=== PATIENT | male | born 1935 | race Caucasian/White ===

== ENCOUNTER 2016-03-10 15:30 | Observation (INO) | payer MEDICARE, OTHER ==
[~2016-03-10] VITALS: Ht 167.6 cm; Wt 78.6 kg
[~2016-03-10 15:30] MED LIST: ALBU8.5H2 INHALATION; ASPI-973 PO; LOSA50TA3 PO; METF500T4 PO; MULT-1018 PO
[2016-03-10 15:47] VITALS: BP 172/66; PULSE 66; RESP 20; O2SAT 99
--- NOTE | 2016-03-10 16:22 | DRSVH ---
PROCEDURE: X-RAY CHEST ONE VIEW, PORTABLE ([id number]) INDICATIONS: 80 year-old male with chest pain. TECHNIQUE: One view of the chest was acquired. COMPARISON: [facility], CR, XR CHEST 2VW, 01/23/2016, 17:32. [facility], CR, XR CHEST 2VW, 10/24/2015, 18:30. [facility], CR, XR CHEST 2VW, 09/27/2015, 14:54. FINDINGS: Surgical changes and devices: None. Lungs and pleura: No pleural effusions or pneumothorax. Lungs are clear. Mediastinum: Mediastinal contours appear normal. Heart size is normal. There is aortic atheroscler osis. Bones and chest wall: No suspicious bony lesions. Overlying soft tissues appear unremarkable. IMPRESSION: No acute cardiopulmonary disease. Dictated by: Pablo Merritt M.D. on 03/10/2016 at 16:20 Approved by: Pablo Merritt M.D. on 03/10/2016 at 16:20
[2016-03-10 16:30] VITALS: BP 155/49; PULSE 65; RESP 17; O2SAT 100
--- NOTE | 2016-03-10 16:50 | ED.REPORT ---
HPI-General Illness Date of Service Mar 10, 2016 ED Provider: Cecilio Gutierrez DO Pt is a 80 year old male with a history of DM, HTN and bladder cancer who was sent to the ED from with concerns for dizziness that started 3 days ago. He denies a spinning sensation, reports that he just feels off balance. Pt reports that these symptoms occur about every 30 minutes and last about one minute. This dizziness is brought on by movement, but can occur on even without movement. He reports that he has a tingling sensation that starts in his head and radiates down his arm. Pt reports no tinnitus, chest pain, abdominal pain, shortness of breath or history of vertigo. Pt's daughter reports that he has recently had an increase in his HTN medication, and when he told his PCP about his dizziness, she told him to stop taking the medication. He has not taken this for the past 4 days. Nursing Notes Stated Complaint: DIZZINESS, HIGH BLOOD PRESSURE/SENT FROM [facility] Chief Complaint: Dysrhythmia/Cardiac Nursing Notes Reviewed: Yes Allergies: Coded Allergies: nitrofurantoin (Verified Allergy, Unknown, PNEUMO, 09/08/15) PNEUMONITIS Scheduled Albuterol HFA (Proair HFA) 8.5 Gm Hfa.aer.ad 2 PUFFS INHALATION Q4H Aspirin (Aspirin) 81 Mg Tablet 81 MG PO DAILY Losartan Potassium (Cozaar) 50 Mg Tablet 50 MG PO DAILY Metformin (Metformin) 500 Mg Tablet 500 MG PO DAILY Multivitamin (Multi Vitamin Daily) 1 Each Tablet 1 EACH PO DAILY General Time Seen by MD: 16:32 Chief Complaint Dizziness Hx Obtained From: Patient Arrived By: Walk-in Sudden in Onset?: Yes Symptom Duration: Since onset Severity: Current: No pain currently Severity: Maximum: No pain Similar Sx Previous: Yes Past Medical History Past Medical History Pneumonia Reports: Cancer (Bladder), Diabetes mellitus, Hypertension Past Surgical History Bladder cancer removed by Dr. Akers AAA repair Smoking History Former Smoker Social History Alcohol Use: Denies alcohol use Drug Use: Denies drug use Other Social History: Ambulatory Status Independent Review of Systems Full Review of Systems Constitutional: Reports: Weakness - generalized, Denies: Chills, Fever, Malaise Respiratory: Denies: Non-productive cough, Shortness of breath, Wheezing Cardiovascular: Denies: Chest pain, Syncope GI: Denies: Abdominal pain, Constipation, Diarrhea, Nausea, Vomiting Male: Denies Dysuria, Denies Flank pain Musculoskeletal: Denies: Back pain, Extremity pain, Neck pain Skin: Denies Diaphoresis Neurologic: Reports: Dizziness, Lightheaded, Denies: Change LOC, Headache, Seizure, Syncope, Weakness Complete sys rev & neg: except as marked. Physical Exam Vital Signs Vital Signs Date Time Temp Pulse Resp B/P Pulse Ox O2 Delivery O2 Flow Rate FiO2 03/10/16 16:30 65 17 155/49 100 Room Air 03/10/16 15:47 36.7 66 20 172/66 99 Room Air Initial VS: Reviewed Head / Eyes: Atraumatic, Normocephalic, PERRL ENT: Mucous membranes moist, Conjunctiva normal, No scleral icterus Neck: Supple, Non-tender, Full range of motion Respiratory: Breath sounds normal, Clear to auscultation, No respiratory distress Cardiovascular: Regular rate & rhythm, Heart sounds normal, Intact distal pulses Abdomen / GI: Soft, Non-tender, No guarding, No rebound, No distention Skin: Warm, Dry, No cyanosis Psychiatric: Mood/affect normal, Behavior normal, Normal thought content General/Constitutional: Awake, Alert, No acute distress, Well appearing, Well developed, Well nourished, Cooperative Neurologic: Oriented X3, Speech NL, No motor deficits, No sensory deficits, CN II - XII intact Interpretation & Diagnostics Lab Results Interpretation Result Diagram: 03/10/16 1646 03/10/16 1646 Test 03/10/16 16:46 White Blood Count 10.6th/mm3 (3.8-10.1) Red Blood Count 3.41mil/mm3 (4.40-5.80) Hemoglobin 10.7g/dL (13.8-17.2) Hematocrit 33.0% (41.0-50.0) Mean Corpuscular Volume 96.8fL (81-100) Mean Corpuscular Hemoglobin 31.4pg (27.0-35.0) Mean Corpuscular Hemoglobin Concent 32.4% (32.0-37.0) Red Cell Distribution Width 12.8% (12.3-15.4) Platelet Count 236bil/L (150-400) Neutrophils (%) (Auto) 90.1% (40-74) Lymphocytes (%) (Auto) 7.0% (14-46) Monocytes (%) (Auto) 2.1% (4-12) Eosinophils (%) (Auto) 0.4% (0-5) Basophils (%) (Auto) 0.2% (0-3) Sodium Level 137mEq/L (134-144) Potassium Level 4.5mEq/L (3.5-5.2) Chloride Level 99mEq/L (97-108) Carbon Dioxide Level 26mmol/L (18-29) Blood Urea Nitrogen 29mg/dL (8-27) Creatinine 0.94mg/dL (0.76-1.27) Estimat Glomerular Filtration Rate 82mL/min (>59) Glucose Level 285mg/dL (60-99) Calcium Level 9.7mg/dL (8.5-10.1) Magnesium Level 1.9mg/dL (1.6-2.6) Total Bilirubin 0.5mg/dL (0.0-1.2) Aspartate Amino Transf (AST/SGOT) 15U/L (0-50) Alanine Aminotransferase (ALT/SGPT) 18U/L (0-44) Alkaline Phosphatase 47U/L (25-160) Troponin T < 0.010ug/L (0.0-0.011) Total Protein 7.3g/dL (6.4-8.4) Albumin 3.7g/dL (3.4-5.0) Hold Zafar Top Tube Received (Received) ECG Interpretation ECG Interpretation: SR - [address] block Minor anterior ST elevation without reciprocal changes Time: 16:06 Interpreted by: ED physician X-Ray Chest Interpretation Chest Xray Interpretation: IMPRESSION: No acute cardiopulmonary disease. Dictated by: Pablo Merritt M.D. on 03/10/2016 at 16:20 Interpretation / Wet Read by: Interpret - Radiologist Re-Eval/Medical Decision Med Decision/Clinical Course Overall the patient has intermittent numbness and sense of off balance which follows a neurologic distribution concerning for the possibility of stroke. Certainly the differential is broad. His workup in the ER is unremarkable and neurology is consulted who does recommend admit and further stroke evaluation. Source of Hx: Old records Time of Eval: 18:24 Re-Evaluation/Progress Note: Pt is rechecked and informed of the consult with Neurology and the plan to admit him at this time. He understands and agrees, all questions are addressed. Consultation #1: Referral / Consult Name: Tammi Zarco MD Consulted With: Neurology Call Returned at: 18:04 [employer] Assessment: Agrees with eval, Agrees with plan Note: Suggests admission, CTA and MRI. Agrees to consult Consultation #2: Referral / Consult Name: Sonido Moy MD Consulted With: Hospitalist Call Returned at: 18:35 [employer] Assessment: Accepts admit Counseled Regarding: Diagnosis, Lab results, Need for follow-up, Need for admission Discharge & Departure Primary Impression: TIA (transient ischemic attack) Transient cerebral ischemia type: unspecified Qualified Code: G45.9 - Transient cerebral ischemic attack, unspecified Disposition: ADMITTED TO HOSPITAL Discharge Condition All VS Reviewed: Yes Condition: Stable Referrals: [facility] (PCP) Leonardo Chavez MD (Family) Care Transferred to: Dr. Bonilla Care Transferred at: 18:07 [place] Attestation Portions of this note were transcribed by Odessa Arce. I, Dr. Gutierrez personally performed the history, physical exam and medical decision-making; I reviewed and confirmed the accuracy of the information in the transcribed note. Signed by: Dallas Stark, 03/10/2016 [id number] copies to: [facility]; Leonardo Chavez MD, Timothy S DO Mar 10, 2016 16:50 TATY ARCE Mar 10, 2016 16:58
[2016-03-10 16:55] LABS: BASOPHILS % (AUTO) 0.2 % (0-3); EOSINOPHILS % (AUTO) 0.4 % (0-5); MONOCYTES % (AUTO) 2.1 % (4-12); Mean Corpuscular Hemoglobin 31.4 pg (27.0-35.0); Mean Corpuscular Volume 96.8 fL (81-100); NEUTROPHILS % (AUTO) 90.1 % (40-74); Platelet Count 236 bil/L (150-400)
[2016-03-10 17:27] LABS: Magnesium 1.9 mg/dL (1.6-2.6)
[2016-03-10 17:33] LABS: TROPONIN T < 0.010 ug/L (0.0-0.011)
--- NOTE | 2016-03-10 17:39 | DRSVH ---
PROCEDURE: CT BRAIN WITHOUT CONTRAST ([id number]) INDICATIONS: 80 year-old male with dizziness. TECHNIQUE: Noncontrast 4.5 mm thick angled axial sections acquired from the foramen magnum to the vertex, with c oronal reformats. COMPARISON: None. FINDINGS: Image quality: Excellent. CSF spaces: Basal cisterns are patent. No extra-axial fluid collections. The ventricles are symmet cristal in size and shape. Brain: No intracranial bleeds or masses. There are minimal periventricular and deep white matter ch ronic small vessel ischemic changes. There is intracranial internal carotid artery atherosclerosis. Skull and face: Calvarium and visualized facial bones appear intact, without suspicious lesions. Sinuses: Visualized sinuses and mastoids are clear. IMPRESSION: No acute intracranial abnormalities. Dictated by: Pablo Merritt M.D. on 03/10/2016 at 17:37 Approved by: Pablo Merritt M.D. on 03/10/2016 at 17:37
[2016-03-10 18:36] VITALS: BP 183/54; PULSE 65; RESP 18; O2SAT 100
[2016-03-10] MEDS ORDERED: Ondansetron 2 mg/mL 2 mL Inj IVPUSH PRN (18:40)
[2016-03-10] MEDS ORDERED: Alum-Mag Hydrox-Simeth 30 mL Suspension PO PRN (18:40)
[2016-03-10 19:29] VITALS: BP 153/62; PULSE 67; RESP 18; O2SAT 98
[2016-03-10 19:41] VITALS: BP 175/68; PULSE 76; RESP 20; O2SAT 97
[2016-03-10] MEDS ORDERED: Polyethylene Glycol (PEG) 17 Gm Powder PO PRN (20:40)
[2016-03-10] MEDS ORDERED: iron (20:48)
[2016-03-10] MEDS ORDERED: PRE10 PO (20:48)
[2016-03-10] MEDS ORDERED: Albuterol HFA 60 Puff 8 Gm Inhaler INHALATION PRN (21:00)
--- NOTE | 2016-03-10 21:03 | NUR ---
admit Pt arrived walked from stretcher to bed with stand by assist. Arrived with all belongings, daughter and granddaughter along. Daughter took wallet and car keys home. Pt alert and oriented, helped with med rec. No complaints of pain or discomfort. Some noted dizziness, will monitor.
[2016-03-10] MEDS ORDERED: hydrALAZINE 20 mg/mL Inj IV PRN (21:10)
--- NOTE | 2016-03-10 21:13 | PCM.HPMED ---
Subjective Date of Service Mar 10, 2016 Primary Provider: Admitting Physician: Sonido Moy MD Primary Care Physician: Clinic,[facility] Residency Attending Physician: Sonido Moy MD Chief Complaint: This is a 80-year-old male with an acute neurologic episode. History of Present Illness: He describes episodes of his right face feeling numb, along with his right arm. This seems to last for just a few minutes and occurs every hour or 2. This is been going on now for 4 days, it started quite mildly, intensifying today. He had a bladder cystoscopy done due to bladder cancer a few days ago and his blood pressure was apparently quite high afterwards and so his losartan dose was increased from 25-50 mg, and he was started on Flomax. When this episode started he spoke with the on-call physician who had him stop the Flomax in case that was the cause and the symptoms did not change. He has a very strong family history of stroke but his first CT brain imaging is negative. There is no consistent neurologic deficit on exam. His symptoms also include an imbalance, without vertigo, and present even when sitting in bed. The emergency department physician was able to discuss his case with Dr. Zarco, who suggested brain MRI and observation tonight. He has never had a stroke or a heart attack before but he has had an abdominal aortic aneurysm graft placement and is actually pending another angiogram with Dr. Short in [place] soon because of a "small leak" from one of the areas of the graft into the original aneurysm. He has had no symptoms that could be attributed to that today. Review of Systems: There has been no chest pain, nausea, vomiting, abdominal pain, shortness breath , coughing, fever, chills, sweats, seizures, rash, joint pain, depression, new allergies, dysuria, bleeding. Allergies Coded Allergies: nitrofurantoin (Verified Allergy, Unknown, PNEUMO, 09/08/15) PNEUMONITIS Home Medications Metformin Albuterol Losartan Aspirin Multivitamin PMH Abdominal aortic aneurysm endostent repair Diabetes type II COPD Hypertension Surgical History Endograft of abdominal aorta Family History Positive for abdominal aortic aneurysm and cerebrovascular accident Social History Hx Alcohol Use: No Hx Substance Use: No Smoking Status: Former Smoker Living Arrangement: with Family Exam Vital Signs Vital Sign - Last Date Time Temp Pulse Resp B/P Pulse Ox O2 Delivery O2 Flow Rate FiO2 03/10/16 19:41 36.8 76 20 175/68 97 Room Air Exam Alert and oriented 3 without apparent distress, he recognizes me and discuss his previous interactions with other family members. Pupils are equally round and reactive to light and accommodation. Extraocular muscles are intact. Sclera are pink and nonicteric. Throat looks normal. No lymph nodes are felt at the, neck, supraclavicular area. There is no thyromegaly. JVD is less than 6 cm. No carotid bruits are heard. Heart is regular rate and rhythm without murmur. Lungs are clear to auscultation bilaterally. Abdomen is soft, with lower abdominal fullness, without pulsatile mass, nontender, no hepato-megaly. Extremities have no ankle edema. Neurologic exam shows cranial nerves II through XII tested and intact, DTRs are symmetric and normoactive. Babinskis are downgoing bilaterally. Finger to nose pointing is symmetric. Grey Roll Man strength is slightly diminished on the right side but not in a reliably consistent fashion. Gait and balance are not tested. Skin has no rash or jaundice. He does have multiple seborrheic keratoses on his back. Lab and Diagnostics Labs CBC Test 03/10/16 16:46 White Blood Count 10.6th/mm3 (3.8-10.1) Red Blood Count 3.41mil/mm3 (4.40-5.80) Hemoglobin 10.7g/dL (13.8-17.2) Hematocrit 33.0% (41.0-50.0) Mean Corpuscular Volume 96.8fL (81-100) Mean Corpuscular Hemoglobin 31.4pg (27.0-35.0) Mean Corpuscular Hemoglobin Concent 32.4% (32.0-37.0) Red Cell Distribution Width 12.8% (12.3-15.4) Platelet Count 236bil/L (150-400) Neutrophils (%) (Auto) 90.1% (40-74) Lymphocytes (%) (Auto) 7.0% (14-46) Monocytes (%) (Auto) 2.1% (4-12) Eosinophils (%) (Auto) 0.4% (0-5) Basophils (%) (Auto) 0.2% (0-3) CMP Test 03/10/16 16:46 Sodium Level 137mEq/L Potassium Level 4.5mEq/L Chloride Level 99mEq/L Carbon Dioxide Level 26mmol/L Blood Urea Nitrogen 29mg/dL Creatinine 0.94mg/dL Estimat Glomerular Filtration Rate 82mL/min Glucose Level 285mg/dL Calcium Level 9.7mg/dL Magnesium Level 1.9mg/dL Total Bilirubin 0.5mg/dL Aspartate Amino Transf (AST/SGOT) 15U/L Alanine Aminotransferase (ALT/SGPT) 18U/L Alkaline Phosphatase 47U/L Troponin T < 0.010ug/L Total Protein 7.3g/dL Albumin 3.7g/dL Hold Zafar Top Tube Received Result Diagram: 03/10/16 1646 03/10/16 1646 X-Rays, CTs and MRIs CT BRAIN WITHOUT CONTRAST ([id number]) INDICATIONS: 80 year-old male with dizziness. TECHNIQUE: Noncontrast 4.5 mm thick angled axial sections acquired from the foramen magnum to the vertex, with coronal reformats. COMPARISON: None. FINDINGS: Image quality: Excellent. CSF spaces: Basal cisterns are patent. No extra-axial fluid collections. The ventricles are symmetric in size and shape. Brain: No intracranial bleeds or masses. There are minimal periventricular and deep white matter chronic small vessel ischemic changes. There is intracranial internal carotid artery atherosclerosis. Skull and face: Calvarium and visualized facial bones appear intact, without suspicious lesions. Sinuses: Visualized sinuses and mastoids are clear. IMPRESSION: No acute intracranial abnormalities. Additional Diagnostics: Surgical changes and devices: None. Lungs and pleura: No pleural effusions or pneumothorax. Lungs are clear. Mediastinum: Mediastinal contours appear normal. Heart size is normal. There is aortic atherosclerosis. Bones and chest wall: No suspicious bony lesions. Overlying soft tissues appear unremarkable. IMPRESSION: No acute cardiopulmonary disease. Assessment & Plan 1 - transient ischemic attack Monitor overnight on telemetry Brain MRI in the morning per neurology Neurology consult under consideration, discussed today with Dr. Pryor. Consider Echo. 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 Short in [place] soon. 4 - COPD Continue albuterol as needed. Continue Prednisone. 5 - bladder cancer Followed by Dr. Akers 6 - DM II Continue Metformin and add Lispro Correctional Scale. Zack Moy M.D. Resuscitation Status: CPR: Attempt Resuscitation Sonido Moy MD Mar 10, 2016 20:42
[2016-03-10] MEDS ORDERED: Glucose 40% Oral Gel 15 Gm Tube PO PRN (21:25)
[2016-03-10] MEDS: Insulin LISPRO 300 Unit/3 mL Inj SUBQ SCH (23:31)
[2016-03-11] VITALS (9 sets, daily range): BP systolic 134–191; BP diastolic 63–70; PULSE 55–69; RESP 18–20; O2SAT 96–99
[2016-03-11 06:10] LABS: BASOPHILS % (AUTO) 0.4 % (0-3); EOSINOPHILS % (AUTO) 2.5 % (0-5); MONOCYTES % (AUTO) 7.5 % (4-12); Mean Corpuscular Hemoglobin 32.1 pg (27.0-35.0); Mean Corpuscular Volume 95.3 fL (81-100); NEUTROPHILS % (AUTO) 65.9 % (40-74); Platelet Count 219 bil/L (150-400)
[2016-03-11] MEDS: Insulin LISPRO 300 Unit/3 mL Inj SUBQ SCH ×4 (07:36→21:17)
[2016-03-11] MEDS ORDERED: predniSONE 10 mg Tablet PO SCH (08:00)
--- NOTE | 2016-03-11 09:13 | NUR ---
Off floor to MRI Patient off floor to MRI at 0910, chart with patient, quality assurance monitor body aware. Vitals stable, denies TIA-like symptoms and in no apparent distress.
--- NOTE | 2016-03-11 10:59 | NUR ---
Evaluation completed. Please go to "Notes" then click on "Assessments and Notes" (bottom left corner of screen). Then select appropriate discipline tab on top of screen.
--- NOTE | 2016-03-11 11:21 | NUR ---
Evaluation completed. Please go to "Notes" then click on "Assessments and Notes" (bottom left corner of screen). Then select appropriate discipline tab on top of screen.
--- NOTE | 2016-03-11 11:27 | DRSVH ---
PROCEDURE: MRI STROKE PROTOCOL ([id number]) Pre- and post-contrast brain MRI, non-contrast brain MR angiogram, pre- and postcontrast neck MR elías ogram INDICATIONS: TIA TECHNIQUE: Brain: Noncontrast axial T1 spin echo, axial T2 fast spin echo, sagittal and axial FLAIR, coronal T2 fast spin echo, axial gradient echo, axial diffusion and ADC through the brain. After the administr ation of contrast, axial 3D VIBE of the cranial vasculature and brain. Brain MRA: Non-contrast 3-D time of flight MR angiogram, with multiple xrorhpa-jkkztfeem-sjwmmunoun (MIP) reformats performed. Neck MRA: Axial and sagittal TruFISP through the neck. Coronal dynamic MR angiogram during administ ration of contrast in the arterial and venous phases, with 3-dimenstional cjqjopi-ximsfnyfu-raweguopd n (MIP) reformats constructed from subtraction images. COMPARISON: [facility], CT, CT BRAIN WO CON, 03/10/2016, 17:12. FINDINGS: Image quality: Excellent. The ventricular system and cortical sulci demonstrate moderate atrophy, consistent for the patient's stated age. There are mild to moderate areas of increased T2/FLAIR signal intensity within the perive ntricular and subcortical white matter. There is no acute intra-or extra axial fluid collection. No acute hemorrhage, mass lesion or midline shift. Brainstem is unremarkable. There are no areas of rest ricted diffusion. Globes are symmetrical. Sinuses demonstrate mucosal thickening within the ethmoid a nd frontal sinuses. Osseous structures are intact. The posterior circulation demonstrates a vertebral artery codominance. The posterior cerebral arterie s demonstrate no areas of hemodynamically significant stenosis, vascular occlusion or aneurysmal dila tion. Posterior communicating arteries are within normal limits. The anterior circulation, including the anterior and middle cerebral arteries, as well as internal ca rotid arteries demonstrates no areas of hemodynamically significant stenosis, vascular occlusion or a neurysmal dilation. 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 The origins of the left and right common, internal and external carotid arteries demonstrate no areas of hemodynamically significant stenosis, vascular occlusion or aneurysmal dilation. Origins of the l eft and right vertebral arteries demonstrate no areas of hemodynamically significant stenosis, vascul ar occlusion or aneurysmal dilation. Aortic arch demonstrates bovine anatomy, consistent with congeni porsche variation. Limited, visualized portions subclavian vasculature are unremarkable. IMPRESSION: 1. No acute intracranial process. No visualized acute ischemia. 2. Mild to moderate atrophy and chronic microvascular ischemic changes. 3. No areas of hemodynamically significant stenosis, vascular occlusion or aneurysmal dilation within the anterior circulation. 4. No areas of hemodynamically significant stenosis, vascular occlusion or aneurysmal dilation within the posterior circulation. 5. No areas of hemodynamically significant stenosis, vascular occlusion or aneurysmal dilation within the neck vasculature. The estimate of stenosis included in the report of the imaging study was calculated using the NASCET method Dictated by: Samantha Morley M.D. on 03/11/2016 at 11:25 Approved by: Samantha Morley M.D. on 03/11/2016 at 11:25
--- NOTE | 2016-03-11 11:45 | NUR ---
Social Work-initial assessment/ readiness for discharge: Data:See initial assessment. Pt is a 80 y/o male who was admitted on 03/10/16 for TIA per H&P. Pt's insurance is [employer] and [facility]. EMR Reviewed. DOROTA met with pt at bedside to discuss discharge planning, SW role explained. Pt is alert and oriented x3. Pt resides at home with his -Angeli in a bottom floor apartment where he remains independent with ADls. Pt does not drive and uses either [employer] ride or family for transport. Pt has no HH or SNF history. 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 SW discussed DPOA/advanced directive with pt, pt states he has never completed this. SW provided him with forms and information. Pt does not use any DME at baseline. OT has cleared pt for home, no needs. Pt's family to provide transport home at discharge. SW provided phone number and plan on white board in room. No discharge needs identified. SW will continue to follow if needs arise. Assessment:Pt who is independent at baseline. Plan:Pt to discharge home when medically stable via POV. No discharge needs identified. SW will continue to follow if needs arise. NARENDRA Sharma Addendum: 03/11/16 at 1150 by SCOOTER MORA Amended: Links added.
--- NOTE | 2016-03-11 14:24 | NUR ---
Evaluation completed. Please go to "Notes" then click on "Assessments and Notes" (bottom left corner of screen). Then select appropriate discipline tab on top of screen.
[2016-03-11] MEDS ORDERED: Labetalol 5 mg/mL 4 mL Inj IVPUSH PRN (14:35)
--- NOTE | 2016-03-11 15:00 | PCM.PNMED ---
Subjective Date of Service Mar 11, 2016 Subjective Overnight: No acute events Today: States he feels well. No current neuro sx at time of examination. Observed with OT, pt was able to complete tasks without difficulty. Able to transfer w/o assistance. Denied CP. fever, chills, nausea, vomiting. Admits to poor chronic vision. Admits to intermittent dizziness. Exam Vital Signs Vital Sign - Last Date Time Temp Pulse Resp B/P Pulse Ox O2 Delivery O2 Flow Rate FiO2 03/11/16 11:36 37.0 69 18 191/68 99 Room Air Intake and Output 03/10/16 03/10/16 03/11/16 Cumulative From/Thru 15:00 23:00 07:00 03/10/16 15:47 - 03/11/16 06:22 Intake Total 918 ml 918 ml Output Total 1400 ml 1400 ml Balance -482 ml -482 ml Intake Oral 918 ml 918 ml Output Urine Total 1400 ml 1400 ml Exam General: AAOx3; pleasant, cooperative; no acute distress HENT: Atraumatic; sclera anicteric; mucus membranes moist Neck: Soft, trachea midline Cardiac: Regular rate and rhythm, no murmurs appreciated Respiratory: Clear to auscultation bilaterally; adequate air flow all aiken Abdomen: Soft, nontender, nondistended Extremities: No edema Skin: Warm and dry MSK: 5/5 BLUE flexor and extensor at elbow, wrist; 5/5 BLLE flexor/extensor at ankle, hip Neuro: Speech normal; no facial sensation deficits; expressions symmetrical; no tongue deviation; mild right gaze nystagmus Psych: Appropriate mood, affect, and responses to questioning Lab and Diagnostics Result Diagram: 03/11/16 0530 03/10/16 1646 X-Rays, CTs and MRIs CT BRAIN WITHOUT CONTRAST ([id number]) INDICATIONS: 80 year-old male with dizziness. TECHNIQUE: Noncontrast 4.5 mm thick angled axial sections acquired from the foramen magnum to the vertex, with coronal reformats. COMPARISON: None. FINDINGS: Image quality: Excellent. CSF spaces: Basal cisterns are patent. No extra-axial fluid collections. The ventricles are symmetric in size and shape. Brain: No intracranial bleeds or masses. There are minimal periventricular and deep white matter chronic small vessel ischemic changes. There is intracranial internal carotid artery atherosclerosis. Skull and face: Calvarium and visualized facial bones appear intact, without suspicious lesions. Sinuses: Visualized sinuses and mastoids are clear. IMPRESSION: No acute intracranial abnormalities. Additional Diagnostics Surgical changes and devices: None. Lungs and pleura: No pleural effusions or pneumothorax. Lungs are clear. Mediastinum: Mediastinal contours appear normal. Heart size is normal. There is aortic atherosclerosis. Bones and chest wall: No suspicious bony lesions. Overlying soft tissues appear unremarkable. IMPRESSION: No acute cardiopulmonary disease. Assessment & Plan Mr. Rabia FONSECA is a pleasant 80 year old gentleman with history of AAA s/p graft placement with new onset possible leak, non-insulin using diabetes mellitus, COPD, and hypertension, that presented to [facility] with a 4 day history of intermittent right sided facial numbness and right sided arm numbness episodes that last for approx 2 minutes, and can occur as frequently as once every two hours. He was admitted for evaluation and treatment of possible TIA. Possible TIA, acute, present on admission. Resolved - Sx: Right sided arm and facial numbness, intermittent - CT head 03/10: No acute intracranial abnormalities - MR stroke protocol with MRA 03/11: No acute ischemia, no areas of stenosis, occlusion, or dilation within anterior, posterior, or neck circulation. No acute intracranial processes; mild to moderate atrophy and chronic microvascular changes noted. - ST/OT/PT to evaluate - Lipid panel - Tele - Echo; no echo in [facility] [employer] hx - ASA 81 - Plavix 75mg daily - Lipitor 10mg qhs Dizziness, acute, present on admission. Under therapy - Reports sx started 03/07 - Right gaze nystagmus on examination - Likely BPPV/vertigo vs recent medication changes; patient reported onset after starting Flomax - Ortho vitals qshift - PT eval - Meclizine 25mg tid Hypertension, essential, chronic. Presumed stable - Continue home medications - Pt reports recent increase in losartan to 50mg daily AAA s/p endograft placement, chronic. Presumed stable - Vascular surgeon: Han Botello - Patient reports 'leak' with scheduled repair this week - Stroke ruled out; can DC permissive HTN - Will manage BP to prevent further leakage; prn labetalol for sys > 160; pulse must be > 70 COPD. Presumed stable - Continue prednisone 10mg daily - Ventolin q2h prn SOB Bladder cancer, chronic. Presumed stable - Uro: Dr Akers - No current issues - Flomax DC'd by PCP 03/07 Non-insulin using diabetes mellitus, chronic. Presumed stable - Correctional scale - Home dose metformin - PRN: Fever/pain/antiemetic/bowel - GI: None - DVT: Jackie 40 sq - Diet: ST to assess - CODE: FULL CODE Dispo: Likely to DC 03/12 pending medical stability. Current needs at this time include completion of stroke work-up. Pain Evaluation: Adequate Pain Control GI Prophylaxis: Not indicated VTE Prophylaxis: Sub-Q Enoxaparin VTE Mechanical Devices: Intermittant Pneumatic CD Resuscitation Status: CPR: Attempt Resuscitation Attending Statement The patient was seen and examined together with Dr. Bell on 03/11/2016 and I agree with the history, exam and plan as outlined in the note above. Shavon Bell DO Mar 11, 2016 14:45 Carter Cabello MD Mar 12, 2016 09:54
--- NOTE | 2016-03-11 16:55 | NUR ---
spiritual care: pt request brief introductory visit. pt enjoying visitors/family. will plan to follow as needed.
[2016-03-12] VITALS (8 sets, daily range): BP systolic 146–172; BP diastolic 63–77; PULSE 48–64; RESP 18–20; O2SAT 97–100
--- NOTE | 2016-03-12 03:50 | NUR ---
Activity Pt alert and oriented x 3. No complaints of pain or discomfort, resting comfortably. Slight fever at 99.2, will monitor.
--- NOTE | 2016-03-12 04:14 | NUR ---
Activity Pt up to bathroom as needed, independent in room. Uses call light appropriately. Alert and oriented, cooperative with cares. Left room with call light at bedside.
[2016-03-12] MEDS: Insulin LISPRO 300 Unit/3 mL Inj SUBQ SCH ×3 (08:00→18:01)
[2016-03-12 08:39] LABS: BASOPHILS % (AUTO) 0.4 % (0-3); MONOCYTES % (AUTO) 6.9 % (4-12); Mean Corpuscular Hemoglobin 31.8 pg (27.0-35.0); Mean Corpuscular Volume 96.1 fL (81-100); NEUTROPHILS % (AUTO) 64.2 % (40-74); Platelet Count 240 bil/L (150-400)
[2016-03-12 08:48] LABS: Magnesium 2.1 mg/dL (1.6-2.6); Phosphorus 2.8 mg/dL (2.5-4.9)
[2016-03-12] MEDS ORDERED: predniSONE 10 mg Tablet PO SCH ×2 (08:57→09:01)
--- NOTE | 2016-03-12 10:16 | NUR ---
Case Management: OBS brochure given and explained to pt. at 09:25. Елена HITCHCOCK RN
[2016-03-12] MEDS ORDERED: Meclizine Hcl PO (14:45)
[2016-03-12] MEDS ORDERED: LIP40 PO (14:45)
[2016-03-12] MEDS ORDERED: CLOP75TA28 PO (14:45)
--- NOTE | 2016-03-12 15:41 | DRSVH ---
[facility] [address] [place] [place] [address] Echocardiogram Report Name: ADEN QUEZADA CStudy Date: Height: 66 in Hospital Exam Location: [facility] Weight: 173 lb Gender: Male BSA: 1.9 m2 : 1935 Age: 80 yrs BP: 172/73 mmHg Reason For Study: TIA Ordering Physician: Performed By: [facility] Interpretation Summary The left ventricle is normal in size, wall thickness, and systolic function without any focal wall motion abnormalities with the ejection fraction estimated to be 60-65%. The right ventricle grossly appears normal in size with probable normal systolic function. The right ventricular systolic pressure is estimated at 42 mmHg assuming a right atrial pressure of 3 mm Hg. Right atrial size is normal and the left atrium is mildly dilated. There is mild mitral regurgitation and mild aortic valve sclerosis with trace aortic regurgitation but no other significant valvular heart disease. Procedure: A two-dimensional transthoracic echocardiogram with color flow and Doppler was performed. The study quality was technically adequate. There is no prior echocardiogram noted for this patient. The patient was in normal sinus rhythm during the exam. Left Ventricle: The left ventricle is normal in size, wall thickness, and systolic function without any focal wall motion abnormalities. The ejection fraction is estimated to be 60-65%. Diastolic function could not be accurately assessed due to contradictory data. Right Ventricle: The right ventricle grossly appears normal in size with probable normal systolic function. Atria: The left atrium is mildly dilated. Right atrial size is normal. The interatrial septum is intact with no evidence for an atrial septal defect. Mitral Valve: The mitral valve leaflets appear mildly thickened, but open well. There is mild mitral regurgitation. Aortic Valve: There is mild aortic valve sclerosis. The aortic valve is mildly calcified. The aortic valve opens well. There is trace aortic regurgitation. Tricuspid Valve: The tricuspid valve is normal. There is trace tricuspid regurgitation. The right ventricular systolic pressure is estimated at 42 mmHg assuming a right atrial pressure of 3 mm Hg. Pulmonic Valve: The pulmonic valve is not well seen, but is grossly normal. There is a trace or physiologic amount of pulmonic regurgitation. There is no other significant valvular heart disease. Great Vessels: The aortic root is normal size. The dimensions of the ascending aorta are normal. A repaired abdominal aorta is visualized without obvious leak. The IVC is of normal diameter and collapses greater than 50% with a sniff. This suggests a low right atrial pressure of 3 mm Hg. Pericardium/ Pleura There is no pericardial effusion. There is no pleural effusion. MMode/2D Measurements & Calculations LVIDd: 4.9 cm LA dimension: 3.4 cm RA long axis AoV Openin.5 cm LVIDs: 2.8 cm Aortic Jxn: 2.5 cm FS: 42.6 % LA A2 area: 22.8 cm RA area asc Aorta Diam IVSd: 0.94 cm LA A4 area: 23.4 cm LVPWd: 0.95 cm LA length (vol) : 16.8 cm Ao Arch Diam RA vol (Proximal trans.) LA vol: 78.3 ml : 47.7 ml LA vol index RA : 25.3 mm/ RVDd major IVC diam: 1.3 cm RVDd minor : 4.3 cm LV gallegos. diameter/BSALV sys. diameter/BSA (cm/m^2): 2.6 (cm/m^2): 1.5 Doppler Measurements & Calculations Ao V2 max MV E max gaudencio MV E/A: 1.1 TR max gaudencio : 172.9 cm/sec : 104.1 cm/sec Med Peak E' Gaudencio : 313.2 cm/sec Ao max PG MV A max gaudencio TR max PG : 12.0 mmHg : 94.4 cm/sec E/E' med: 14.5 : 39.2 mmHg Ao mean PG MV P1/2t: 60.3 msec Lat Peak E' Gaudencio PA V2 max : 6.0 mmHg : 159.7 cm/sec E/E' lat: 15.9 PA mean PG PA Accel Time : 0.13 sec MV dec time MV P1/2t max gaudencio Ao V2 mean PA V2 mean : 0.21 sec : 114.8 cm/sec : 110.6 cm/sec MVA(P1/2t): 3.6 cm2 Ao V2 VTI: 38.2 cm Reading Physician:03:40 PM
--- NOTE | 2016-03-12 15:52 | PCM.DIMED ---
Ramon Bellsay Tati ARCOS 03/12/16 1443: Discharge Instructions Date of Service Mar 12, 2016 Dates of Hospitalization Mar 10, 2016 at 19:35 Discharge Diagnosis Discharge Diagnosis Possible TIA, acute, present on admission. Resolved Dizziness, acute, present on admission. Resolved Hypertension, essential, chronic. Stable AAA s/p endograft placement, chronic. Presumed stable COPD. Presumed stable Bladder cancer, chronic. Presumed stable Non-insulin using diabetes mellitus, chronic. Presumed stable Medication Instructions NEW MEDICATIONS: Meclizine 25mg - Take 25mg three times daily - This is to help reduce dizziness Atorvastatin 40mg - Take 40mg nightly - This is a cholesterol lowering medication Clopidogrel (Plavix) 75mg - Take 75mg daily - This is a 'blood thinner' to prevent blood clots, which can lead to strokes and heart attacks No other changes were made to the medications available on our reconciliation. Please follow the directions according to their prescriber. If you have any questions, contact your primary care provider. Test Results - Your brain/head CT did not show any acute bleeding - Your brain and neck MR did not show any acute bleeding, and did not show any stenoses or occlusions within your blood vessels that supply your brain - Your echocardiogram/ultrasound of your heart did not reveal any potential source of clots or vegetations. Your heart appeared to be functioning well. Diet Heart Healthy, Diabetic Activity Outpatient Physical Therapy Call your provider Fever or Chills, Shortness of breath, Bleeding, Chest pain, Excessive diarrhea, Weakness (unilateral) Patient Instructions - Recommendations: - Outpatient physical therapy to improve strength and balance - Close monitoring of blood pressure. Take your blood pressure at home. Please record your values, in addition to your pulse and activity, and let your primary care be aware of these values, as they may wish to adjust your medications - Stay well hydrated; dehydration can be a cause of dizziness - If you would like copies of the records, please inquire at our medical records office on the first floor near the [facility]. Follow-up plan - Follow up with your primary care within 7-10 days after discharge. At that visit, discuss: - Your blood pressure. Record your home values and bring to appointment. - If your dizziness continues - Your new medications: Meclizine, atorvastatin, Plavix - Follow up with your endovascular surgeon as scheduled. Blood pressure control is important! Follow-up Provider: Grant Tarango Follow-up with PCP in: 1 week Provider: Loan Short MD Follow-up in: 1 week Carter Cabello MD 03/13/16 1032: Shavon Bell DO Mar 12, 2016 14:43 Carter Cabello MD Mar 13, 2016 10:32
--- NOTE | 2016-03-12 16:03 | NUR ---
Social Work: Discharge Data: Pt is on day 2 of hospitalization. EMR reviewed, d/c orders are in. No further d/c or WET TRIMMER needs at this time. WET TRIMMER will continue to follow if needs arise. Assessment: Pt who is independent at baseline. Plan: Pt will d/c home via POV today with family. No further d/c or WET TRIMMER needs at this time. WET TRIMMER will continue to follow if needs arise. NARENDRA Rodriguez
--- NOTE | 2016-03-12 16:41 | PCM.DC.MED ---
Discharge Summary Date of Service Mar 12, 2016 Dates of Hospitalization Date of Hospital Admission Mar 10, 2016 at 19:35 Date of Discharge: Mar 12, 2016 Providers: Admitting Physician: Sonido Moy MD Primary Care Physician: YAKOV Chawla Residency Attending Physician: Sonido Moy MD Diagnosis at Time of Discharge Diagnosis at Time of Discharge Possible TIA, acute, present on admission. Resolved Dizziness, acute, present on admission. Resolved Hypertension, essential, chronic. Stable AAA s/p endograft placement, chronic. Presumed stable COPD. Presumed stable Bladder cancer, chronic. Presumed stable Non-insulin using diabetes mellitus, chronic. Presumed stable Consultations Cardiology- for echocardiogram reading/interpretation Neurology- ED consultation Procedures XRay, CTs & MRIs PROCEDURE: X-RAY CHEST ONE VIEW, PORTABLE ([id number]) IMPRESSION: No acute cardiopulmonary disease. Dictated by: Pablo Merritt M.D. on 03/10/2016 at 16:20 Approved by: Pablo Merritt M.D. on 03/10/2016 at 16:20 PROCEDURE: CT BRAIN WITHOUT CONTRAST ([id number]) IMPRESSION: No acute intracranial abnormalities. Dictated by: Pablo Merritt M.D. on 03/10/2016 at 17:37 Approved by: Pablo Merritt M.D. on 03/10/2016 at 17:37 PROCEDURE: MRI STROKE PROTOCOL ([id number]) Pre- and post-contrast brain MRI, non-contrast brain MR angiogram, pre- and postcontrast neck MR angiogram IMPRESSION: 1. No acute intracranial process. No visualized acute ischemia. 2. Mild to moderate atrophy and chronic microvascular ischemic changes. 3. No areas of hemodynamically significant stenosis, vascular occlusion or aneurysmal dilation within the anterior circulation. 4. No areas of hemodynamically significant stenosis, vascular occlusion or aneurysmal dilation within the posterior circulation. 5. No areas of hemodynamically significant stenosis, vascular occlusion or aneurysmal dilation within the neck vasculature. The estimate of stenosis included in the report of the imaging study was calculated using the NASCET method Dictated by: Samantha Morley M.D. on 03/11/2016 at 11:25 Approved by: Samantha Morley M.D. on 03/11/2016 at 11:25 Cardiac Echo Impression Echocardiogram Report Interpretation Summary The left ventricle is normal in size, wall thickness, and systolic function without any focal wall motion abnormalities with the ejection fraction estimated to be 60-65%. The right ventricle grossly appears normal in size with probable normal systolic function. The right ventricular systolic pressure is estimated at 42 mmHg assuming a right atrial pressure of 3 mm Hg. Right atrial size is normal and the left atrium is mildly dilated. There is mild mitral regurgitation and mild aortic valve sclerosis with trace aortic regurgitation but no other significant valvular heart disease. Brief History History obtained from admission note, dated 03/10/2015, composed by Dr. Zack Moy: This is a 80-year-old male with an acute neurologic episode. He describes episodes of his right face feeling numb, along with his right arm. This seems to last for just a few minutes and occurs every hour or 2. This is been going on now for 4 days, it started quite mildly, intensifying today. He had a bladder cystoscopy done due to bladder cancer a few days ago and his blood pressure was apparently quite high afterwards and so his losartan dose was increased from 25-50 mg, and he was started on Flomax. When this episode started he spoke with the on-call physician who had him stop the Flomax in case that was the cause and the symptoms did not change. He has a very strong family history of stroke but his first CT brain imaging is negative. There is no consistent neurologic deficit on exam. His symptoms also include an imbalance, without vertigo, and present even when sitting in bed. The emergency department physician was able to discuss his case with Dr. Zarco, who suggested brain MRI and observation tonight. He has never had a stroke or a heart attack before but he has had an abdominal aortic aneurysm graft placement and is actually pending another angiogram with Dr. Short in [place] soon because of a "small leak" from one of the areas of the graft into the original aneurysm. He has had no symptoms that could be attributed to that today. Hospital Course Mr. Rabia FONSECA is a pleasant 80 year old gentleman with history of AAA s/p graft placement with new onset possible leak, non-insulin using diabetes mellitus, COPD, and hypertension, that presented to [facility] with a 4 day history of intermittent right sided facial numbness and right sided arm numbness episodes that last for approx 2 minutes, and can occur as frequently as once every two hours. He was admitted for evaluation and treatment of possible TIA. Imaging, including CT brain and MRA, did not reveal any acute intracranial disorders, and no evidence of vascular occlusion, stenoses, or abnormalities. He reported some dizziness while he was here, and meclizine was initiated with resolution of symptoms. He was discharged home, with recommendations for outpatient physical therapy, in stable condition. - Hospital day total: 3 Possible TIA, acute, present on admission. Resolved - Sx: Right sided arm and facial numbness, intermittent - CT head 03/10: No acute intracranial abnormalities - MR stroke protocol with MRA 03/11: No acute ischemia, no areas of stenosis, occlusion, or dilation within anterior, posterior, or neck circulation. No acute intracranial processes; mild to moderate atrophy and chronic microvascular changes noted. - Echo 03/12: EF60-65, LV size and function normal; RV size and function normal ; no significant valvular disease - ST/OT/PT evaluations completed: PT recommended outpatient PT; no evidence of dysphagia - Lipid panel: total chol 237, LDL 152, HDL 55, TG 176 - Continued ASA 81 - Rx at DC: - Atorvastatin 40mg po qhs - Plavix 75mg daily Dizziness, acute, present on admission. Resolved - Reports sx started 03/07 - Right gaze nystagmus on examination - Likely BPPV/vertigo vs recent medication changes; patient reported onset after starting Flomax - Rx at DC: - Meclizine 25mg po tid Hypertension, essential, chronic. Presumed stable - Continued home medications - Pt reports recent increase in losartan to 50mg daily; continued at DC - Recommended close outpatient follow up with interim home monitoring AAA s/p endograft placement, chronic. Presumed stable - Vascular surgeon: Han Botello - Patient reports 'leak' with scheduled repair this week - Follow up as scheduled COPD. Presumed stable - Continued prednisone 10mg daily Bladder cancer, chronic. Presumed stable - Uro: Dr Akers - No current issues - Flomax DC'd by PCP 03/07 Non-insulin using diabetes mellitus, chronic. Presumed stable - Continued home dose metformin Exam Vital Signs (Last) Date Time Temp Pulse Resp B/P Pulse Ox O2 Delivery O2 Flow Rate FiO2 03/12/16 10:52 59 03/12/16 10:50 36.9 20 154/71 97 Room Air Exam General: AAOx3; pleasant, cooperative; no acute distress HENT: Atraumatic; sclera anicteric; mucus membranes moist Neck: Soft, trachea midline Cardiac: Regular rate and rhythm, no murmurs appreciated Respiratory: Clear to auscultation bilaterally; adequate air flow all aiken Abdomen: Soft, nontender, nondistended Extremities: No edema Skin: Warm and dry MSK: 5/5 BLUE flexor and extensor at elbow, wrist; 5/5 BLLE flexor/extensor at ankle, hip; steady ambulation without assistive devices Neuro: Speech normal; no facial sensation deficits; expressions symmetrical; no tongue deviation Psych: Appropriate mood, affect, and responses to questioning Test 03/10/16 16:46 03/11/16 05:30 03/12/16 04:09 03/12/16 06:32 Total Bilirubin 0.5mg/dL (0.0-1.2) Aspartate Amino Transf (AST/SGOT) 15U/L (0-50) Alanine Aminotransferase (ALT/SGPT) 18U/L (0-44) Alkaline Phosphatase 47U/L (25-160) Total Protein 7.3g/dL (6.4-8.4) Albumin 3.7g/dL (3.4-5.0) Hold Zafar Top Tube Received (Received) Hemoglobin A1c 9.1% (4.8-5.6) Troponin T < 0.010ug/L (0.0-0.011) Hold Urine Received (Received) White Blood Count 10.5th/mm3 (3.8-10.1) Red Blood Count 3.36mil/mm3 (4.40-5.80) Hemoglobin 10.7g/dL (13.8-17.2) Hematocrit 32.3% (41.0-50.0) Mean Corpuscular Volume 96.1fL (81-100) Mean Corpuscular Hemoglobin 31.8pg (27.0-35.0) Mean Corpuscular Hemoglobin Concent 33.1% (32.0-37.0) Red Cell Distribution Width 12.6% (12.3-15.4) Platelet Count 240bil/L (150-400) Neutrophils (%) (Auto) 64.2% (40-74) Lymphocytes (%) (Auto) 25.1% (14-46) Monocytes (%) (Auto) 6.9% (4-12) Eosinophils (%) (Auto) 3.0% (0-5) Basophils (%) (Auto) 0.4% (0-3) Sodium Level 142mEq/L (134-144) Potassium Level 4.0mEq/L (3.5-5.2) Chloride Level 105mEq/L (97-108) Carbon Dioxide Level 24mmol/L (18-29) Blood Urea Nitrogen 25mg/dL (8-27) Creatinine 0.73mg/dL (0.76-1.27) Estimat Glomerular Filtration Rate 110mL/min (>59) Glucose Level 132mg/dL (60-99) Calcium Level 8.9mg/dL (8.5-10.1) Phosphorus Level 2.8mg/dL (2.5-4.9) Magnesium Level 2.1mg/dL (1.6-2.6) Triglycerides Level 146mg/dL (0-149) Cholesterol Level 237mg/dL (100-199) LDL Cholesterol, Calculated 152.800mg/dL (0-99) VLDL Cholesterol 29.200mg/dL HDL Cholesterol 55mg/dL (>39) Cholesterol/HDL Ratio 4.31 (0.0-4.4) Discharge Medications Discharge Medications ([Meclizine Hcl]) 25 MG TABLET 25 MG PO TID Prescribed by: SHAVON FREY DO Albuterol HFA (Proair HFA) 8.5 Gm Hfa.aer.ad 2 PUFFS INHALATION Q4H Prescribed by: DAMON DAVIS MD Aspirin (Aspirin) 81 Mg Tablet 81 MG PO DAILY (Reported) Atorvastatin (Lipitor) 40 Mg Tablet 40 MG PO DAILY Prescribed by: SHAVON FREY DO Clopidogrel (Clopidogrel) 75 Mg Tablet 75 MG PO DAILY Prescribed by: SHAVON FREY DO Losartan Potassium (Cozaar) 50 Mg Tablet 50 MG PO DAILY Prescribed by: DAMON DAVIS MD Metformin (Metformin) 500 Mg Tablet 500 MG PO DAILY (Reported) Multivitamin (Multi Vitamin Daily) 1 Each Tablet 1 EACH PO DAILY (Reported) Prednisone (PredniSONE) 10 Mg Tablet 10 MG PO DAILY (Reported) Miscellaneous Medications ([iron]) 65 (Reported) Additional med instructions NEW MEDICATIONS: Meclizine 25mg - Take 25mg three times daily - This is to help reduce dizziness Atorvastatin 40mg - Take 40mg nightly - This is a cholesterol lowering medication Clopidogrel (Plavix) 75mg - Take 75mg daily - This is a 'blood thinner' to prevent blood clots, which can lead to strokes and heart attacks No other changes were made to the medications available on our reconciliation. Please follow the directions according to their prescriber. If you have any questions, contact your primary care provider. Followup Plan Disposition: Home; outpatient PT Follow-up plan - Follow up with your primary care within 7-10 days after discharge. At that visit, discuss: - Your blood pressure. Record your home values and bring to appointment. - If your dizziness continues - Your new medications: Meclizine, atorvastatin, Plavix - Follow up with your endovascular surgeon as scheduled. Blood pressure control is important! Discharge Diet: Heart Healthy, Diabetic Discharge Activity: Outpatient Physical Therapy Patient Instructions - Recommendations: - Outpatient physical therapy to improve strength and balance - Close monitoring of blood pressure. Take your blood pressure at home. Please record your values, in addition to your pulse and activity, and let your primary care be aware of these values, as they may wish to adjust your medications - Stay well hydrated; dehydration can be a cause of dizziness - If you would like copies of the records, please inquire at our medical records office on the first floor near the [facility]. Follow-up Provider: Grant Tarango Follow-up with PCP in: 1 week Provider: Loan Short MD Follow-up in: 1 week Attending Statement The patient was seen and examined together with Dr. Frey on 03/12/2015 and I agree with the history, exam and plan as outlined in the note above. Shavon Frey DO Mar 12, 2016 16:41 Carter Cabello MD Mar 13, 2016 10:32
--- NOTE | 2016-03-12 18:27 | NUR ---
Discharge patient discharged with daughter accompanied by [facility] via wheel chair. reviewed discharge paper work and understood. Reviewed discharge medications and understood. provided written care noted and understood. discontinued IV with out difficulty. denies pain or discomfort before discharge.
[2016-07-30] MEDS ORDERED: GABA-502 PO (07:47)
[2016-07-30] MEDS ORDERED: ALFU10TA11 PO (07:47)
== END 2016-03-12 18:30 | disposition home or self-care (01) ==
LOC: SED 15:30 → MPC 19:35
PROVIDERS: ADMIT Family Medicine; ATTEND Family Medicine
DX: R42 Dizziness and giddiness (principal); I10 Essential (primary) hypertension; E11.9 Type 2 diabetes mellitus without complications; J44.9 Chronic obstructive pulmonary disease, unspecified; T82.330A Leakage of aortic (bifurcation) graft (replacement), initial encounter; Z85.51 Personal history of malignant neoplasm of bladder; Z79.82 Long term (current) use of aspirin; Z87.891 Personal history of nicotine dependence; Z79.84 Long term (current) use of oral hypoglycemic drugs
CPT/HCPCS: 36415; 70450; 70549; 70553; 71010; 80048; 80053; 80061; 82948; 83036; 83735; 84100; 84484; 85025; 92610; 93005; 97161; 97165; 99285; A9585; C8929; G0378; G0463; G8978; G8979; G8980; G8996; G8997; G8998; J1650; J1815

== ENCOUNTER 2016-07-31 08:58 | Day surgery (SDC) | payer MEDICARE, OTHER ==
[~2016-07-31] VITALS: Ht 165.1 cm; Wt 79.2 kg
[2016-07-31] VITALS (9 sets, daily range): BP systolic 131–186; BP diastolic 51–65; PULSE 58–63; RESP 8–18; O2SAT 97–100
[~2016-07-31 08:58] MED LIST changes: -ALBU8.5H2 INHALATION; +ALFU10TA11 PO; +CLOP75TA28 PO; +GABA-502 PO; +LIP40 PO; +Lactated Ringer's 1,000 ML IV SCH; +MITOMYCIN IRRIGATION ONE; +Vancomycin Inj 1,000 MG in IV Premix 1 EACH IV ONE; +iron; +levoFLOXacin Inj 500 MG in IV Premix 1 EACH IV ONE
[2016-07-31] MEDS ORDERED: Ondansetron 2 mg/mL 2 mL Inj ONE (08:59)
[2016-07-31] MEDS ORDERED: Propofol 10,000 mCg/mL 20 mL Inj ONE (08:59)
[2016-07-31] MEDS ORDERED: EPHEDrine/NS 5 mg/mL 5 mL Syringe ONE (08:59)
[2016-07-31] MEDS ORDERED: fentaNYL-PF 50 mCg/mL 2 mL Inj ONE (08:59)
[2016-07-31] MEDS ORDERED: Belladonna Alk-Opium 60 mg Rectal Suppository RECTAL ONE ×2 (10:41→11:31)
[2016-07-31] MEDS ORDERED: Lactated Ringer's 1,000 ML IV SCH (10:48)
[2016-07-31] MEDS ORDERED: Lactated Ringer's 500 ML IV PRN (10:48)
--- NOTE | 2016-07-31 10:48 | PCM.HPANE ---
Patient Data Surgeon Admitting Provider: Attending Provider:Perez Akers MD Primary Care Physician:Grant Tarango Other Provider:Jagruti Patrick Anesthesia Reason for Visit Bladder Cancer, Bladder Lesion Ht/WT & BMI Height (Feet): 5 Height (Inches): 5 Weight (Kilograms): 79.2 Body Mass Index 29.00 Allergies Coded Allergies: nitrofurantoin (Verified Allergy, Unknown, PNEUMO, 09/08/15) PNEUMONITIS Past Anesthesia History Anesthesia History: Denies:: Abnormal Airway, Anesthesia Reactions, Difficult Intubation, Fam Anesthesia Reaction, Fam Malignant Hypertherm, Malignant Hyperthermia Diabetes History Hx Diabetes?: Yes Type of Diabetes: Type II Glycemic Control: Oral Medication 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) Medications Blood Thinner: Aspirin, Plavix Hypertension Medication: Yes Home Meds Incl Beta Jaiden: No Active Scripts Atorvastatin (Lipitor)40 Mg [id number] Mg PO DAILY #30 TABLET Ref 0 Prov:Shavon Bell DO 03/12/16 Clopidogrel 75 Mg [id number] Mg PO DAILY #30 TABLET Prov:Shavon Bell DO 03/12/16 Losartan Potassium (Cozaar)50 Mg [id number] Mg PO DAILY #30 TABLET Ref 0 Prov:Shannan Son MD 09/08/15 Reported Medications Gabapentin 300 Mg [id number] Mg PO DAILY Ref 0 07/30/16 Alfuzosin ER 10 Mg Tab.er.24h10 Mg PO DAILY 07/30/16 [iron] No Conflict Check65 03/10/16 Metformin 500 Mg Thtroe730 Mg PO DAILY Ref 0 11/09/15 Multivitamin (Multi Vitamin Daily)1 Each Tablet1 Each PO DAILY 30 Days Ref 0 07/16/15 Aspirin 81 Mg [place]63 Mg PO DAILY Ref 0 07/16/15 Discontinued Reported Medications Prednisone (PredniSONE)10 Mg Hpdzlw02 Mg PO DAILY Ref 0 03/10/16 Discontinued Scripts [Meclizine Hcl] (Antivert)25 MG TABLET No Conflict Check25 Mg PO TID #90 Prov:Shavon Bell DO 03/12/16 Albuterol HFA (Proair HFA)8.5 Gm Hfa.aer.ad2 Puffs INHALATION Q4H SHORTNESS OF BREATH #1 INHALER Prov:Shannan Son MD 09/08/15 History History of ENT Problems?: Yes HEENT History: Positive for:: Cataracts (bilateral surgery) Denies:: Abnormal Airway Difficult Intubation Dysphagia Hearing Problem Sinus Problem Denture Type: Full- Upper Full- Lower Teeth Condition: No Teeth Hx of Heart Problems?: Yes Cardiovascular History: Positive for:: Cardiac Surgery (AAA repair - endovascular 06/2015) Coronary Artery Disease (elevated chloresterol) Hypertension Denies:: Chest Pain Congestive Heart Failure Edema Heart Murmur Irregular Heartbeat Pacemaker Thrombophlebitis Valvular Heart Disease Other Cardiac History: no current cardiac symptoms, < 4METS Hx of Respiratory Problem?: Yes Respiratory History: Positive for:: Pneumonia (Recent hospitalization with sepsis) Use of Inhalers / NEBS Denies:: Asthma COPD Chest Surgery Dyspnea Emphysema Hemoptysis Oxygen Administration Tuberculosis Use of C-PAP Machine Hx Neurologic Problems?: Yes Neurological History: Positive for:: TIA (hospitalized 03/10-03/12 2016 POSSIBLE) Denies:: Alzheimer's Disease CVA Dementia Dizziness Headaches Multiple Sclerosis Parkinson's Disease Seizures Hx of GI Problems?: Yes Hx of Problems?: Yes Genitourinary History: Positive for:: Urinary Tract Infection Denies:: Kidney Stones Other Pertinent History: frequency urgency benign non nodular prostatic hy[erplasia with lower urinary tract symptoms microscopic hematuria incomplete bladder emptying urethral stricture bladder mass malignant neoplasm of urinary bladder Male Hx: Positive for:: Prostate Problems (Enlarged) Denies:: Scrotal Mass Testicular Surgery Skin History: Positive for:: History Skin Disorders? 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)) Denies:: Pressure Ulcers Hx Musculoskeletal Problems?: No Musculoskeletal History: Denies:: Back Injury Joint Replacement Musculoskeletal Trauma Hx of Psycho/Social Problems?: No Psycho Social History: Denies:: Anxiety Bipolar Disorder Hx Depression Suicide Attempt Hx Surgeries?: No (I+D finger, endovascular AAA repair, bladder surgery) Hx Any Other Health Problems?: Yes Other History: Positive for:: Cancer (bladder cancer) Hospitalization (MRSA finger, Surgery, UTI,TIA MAR 2016) Denies:: Thyroid Disease History Blood Transfusions: Denies:: Blood Transfusions Hx Diabetes: Yes Hx Alcohol Use: NoHx Substance Use: No Smoking Status: Former Smoker Have You Smoked inLast 12 mo: No (QUIT 20 YEARS AGO) Stop/Bang S-Snoring: Do You Snore Loudly: No T-Tired: feel tired, fatigued: No O-Obsered: Observed not breath: Yes P-Blood Pressure: treated: Yes B- Body Mass Index > 35 kg/m2: No A- Age over 50: Yes N- Neck Large Circumference: No G- Gender Male: Yes FREDY Total Score: 4 FREDY Risk Assessment: High Risk, =/>3 Yes Risk Assessment Category Category 1A: Patient has history of documented sleep apnea, and HAS NOT received any narcotic, sedative or anesthesia administration during this stay. Category 1B: Patient has history of documented sleep apnea, and HAS received any narcotic , sedative or anesthesia administration during this stay Category 2: Patient has SUSPECTED Obstructive Sleep Apnea, and HAS received any narcotic , sedative or anesthesia administration during this stay. Category 3: Patient has SUSPECTED Obstructive Sleep Apnea and HAS NOT received narcotic, sedative or anesthesia administration during this stay. Category 4: Outpatient in Procedural Areas with known sleep apnea or who screen positive for High Risk via the STOP/BANG questionnaire. Exam Exam Vital Signs Vital Signs Date Time Temp Pulse Resp B/P Pulse Ox O2 Delivery O2 Flow Rate FiO2 07/31/16 09:36 36.3 61 15 186/65 98 Room Air General Appearance: Alert, Oriented X3, Cooperative, No Acute Distress HEENT/AIRWAY: MP 2 Lungs: Clear to Auscultation, Normal Air Movement Heart: Exam Unremarkable, Regular Rate/Rhythm, No Murmurs/Rubs/Gallops Plan Impression Patient chart reviewed, patient interviewed and anesthestic plan with risks, benefits, and alternatives discussed, and informed consent obtained. NPO per Anesth. Guidelines: Yes ASA Physical Status: ASA3 Severe Disease Anesthetic Plan: GA Bene/Risks/Altern/Consents: Yes HP Complete Prior to Induction: Yes Juan Diego Steele MD July 31, 2016 09:58
[2016-07-31] MEDS ORDERED: EPHEDrine Sulfate 50 mg/mL Inj IVPUSH PRN (10:50)
[2016-07-31] MEDS ORDERED: HYDROmorphone 1 mg/mL Inj IVPUSH PRN (10:50)
[2016-07-31] MEDS ORDERED: Phenylephrine 10,000 mCg/mL Inj IVPUSH PRN (10:50)
[2016-07-31] MEDS ORDERED: Ondansetron 2 mg/mL 2 mL Inj IVPUSH PRN (10:50)
[2016-07-31] MEDS ORDERED: Labetalol 5 mg/mL 4 mL Inj IV PRN (10:50)
[2016-07-31] MEDS ORDERED: fentaNYL-PF 50 mCg/mL 2 mL Inj IVPUSH PRN (10:50)
[2016-07-31] MEDS ORDERED: MetoCLOpramide 5 mg/mL 2 mL Inj IVPUSH PRN (10:50)
[2016-07-31] MEDS ORDERED: Atropine 0.4 mg/mL Inj IVPUSH PRN (10:50)
[2016-07-31] MEDS ORDERED: Lactated Ringer's 1,000 ML IV ONE (10:55)
[2016-07-31] MEDS ORDERED: Iopamidol-300 50 mL Inj IV ONE (11:50)
--- NOTE | 2016-07-31 12:44 | PCM.SURGPO ---
Immediate Operative Note Date of Surgery: July 31, 2016 Pre Operative Diagnosis Bladder tumor, bladder lesion Post Operative Diagnosis Bladder tumors, bladder lesion Procedure Cystoscopy, transurethral resection of bladder tumors (1-2cm), bladder biopsy, and L ureteral stent placement Surgeon and Leasing Representative Surgeon: Perez kAers MD Assistants: None Findings Cystoscopy revealed an approx. 1cm papillary bladder tumor on L trigone (just posterior to L ureteral orifice), an approx. 0.5cm papillary bladder tumor on L trigone (approx. 1-2cm posterior to L ureteral orifice), and an approx. 0.5cm erythematous and mildly edematous bladder lesion on L trigone (approx. 1-2cm medial to L ureteral orifice). Bladder tumors and bladder lesion were resected using bipolar loop electrocautery. L ureteral stent was placed. Complications There were no periprocedural complications identified. Surgical Specimen Removed: Yes Specimen sent to Pathology: Yes Surgical Specimen description: L trigone bladder tumors, L trigone bladder lesion Anesthetic Administered: GA Grafts, Implants: Other (22cm x 6F L ureteral JJ stent (no string), 20F Barbosa catheter to straight drainage) Output, Estimated Blood Loss: 5 Blood Admin during surgery: No Additional information Patient to return to see me in 5-6 days for post-op visit and trial of void ( early-mid AM appt.). Perez Akers MD July 31, 2016 12:44
--- NOTE | 2016-07-31 12:53 | PCM.DISURG ---
Surgical Discharge Instruction Date of Service July 31, 2016 Dates of Hospitalization Date of Hospital Admission July 31, 2016 Providers Admitting Physician: Perez Akers MD Primary Care Physician: Grant Tarango Attending Physician: Perez Akers MD Discharge Diagnosis Discharge Diagnosis Bladder tumors, bladder lesion Post Operative diagnosis Bladder tumors, bladder lesion Diet Discharge Diet: No restrictions, Other (Drink at least 10-12 8oz. glasses (3 liters) of fluids per day as long as there is blood in the urine) Activity Discharge Activity-General: No driving while taking narcotic, Other (No strenuous exercise/activity or moderate or heavy lifting (> 10 lbs.) for 1-2 weeks) Dressing and Incisional Care Hygiene: May shower Additional Instructions Discharge Instructions Do not take any blood-thinning medications (including Plavix and Aspirin) for 7 days after surgery. Re-start taking Plavix and Aspirin 7 days after surgery. Follow Up Plan Follow-up Provider (F9): Perez Akers MD Follow-up appointment: Days (5-6 days for post-op visit and trial of void ( early-mid AM appt.)) Call your provider for: Fever, Chills, Vomiting, Other (Non-draining Barbosa catheter, pain uncontrolled by pain medication) Perez Akers MD July 31, 2016 12:52
[2016-07-31] MEDS ORDERED: Phenazopyridine 97.5 mg Tablet PO PRN (12:55)
[2016-07-31] MEDS ORDERED: HYDROcodone-APAP 5-325 mg Tablet PO PRN (12:55)
--- NOTE | 2016-07-31 13:19 | DRSVH ---
PROCEDURE: X-RAY RETROGRADE UROGRAPHY INDICATIONS: LEFT URETERAL STENT PLACEMENT TECHNIQUE: 4 intra-operative images acquired by the Urology service. COMPARISON: [facility], CT, CT ABD PELVIS W&WO CON IVP, 05/16/2015, 15:08. FINDINGS: Exam limited to 4 submitted images. Within these limits, opacification of the left renal collecting system demonstrates no intraluminal filling defects. No hydronephrosis is seen. No extra vasation. Visualized portion of the proximal left ureter is normal caliber Ureteral stent was place d. IMPRESSION: 1. Grossly normal appearance of the left renal collecting system and visualized short segment of the proximal ureter. 2. Ureteral stent placed. Dictated by: Jason Hooker [facility] Interpreted: Theodora Cedeño MD on 07/31/2016 at 13:15 Transcribed by: ZENOBIA on 07/31/2016 at 13:19 Approved by: Theodora Cedeño MD, PhD on 07/31/2016 at 15:23
--- NOTE | 2016-07-31 13:58 | PCM.ANEP1 ---
Post Anesthesia PACU Phase 1 Assessment Vital Signs Vital Signs Date Time Temp Pulse Resp B/P Pulse Ox O2 Delivery O2 Flow Rate FiO2 07/31/16 13:14 58 16 167/59 97 Room Air 07/31/16 13:08 58 14 166/51 99 Room Air 07/31/16 13:00 36.1 58 12 148/56 100 Room Air 07/31/16 12:45 36.0 63 18 163/55 99 Room Air 07/31/16 12:35 59 8 152/57 100 Simple Mask 7 07/31/16 12:30 59 9 131/54 100 Simple Mask 7 07/31/16 12:25 132/51 100 Simple Mask 10 07/31/16 12:23 36.0 131/51 100 Simple Mask 10 07/31/16 09:36 36.3 61 15 186/65 98 Room Air Anesthetic Administered: GA Level of Alertness: Sleepy, easy to arouse CHAVARRIA's with Equal Strength: Yes Pain: No Nausea or Vomiting: No CV Function & Hydration Stable: Yes Airway Device: Oxygen Delivery: Simple Mask Lungs: Clear to Auscultation, Normal Air Movement PACU Phase 2 Assessment Complications: No Follow up Care: N/A Patient Instructions Provided: N/A Juan Diego Steele MD July 31, 2016 13:58
--- NOTE | 2016-08-01 15:18 | PATH ---
SURGICAL PATHOLOGY Attending Physician:Perez Akers MD CASE STATUS: Signed Out PATIENT NAME: ADEN QUEZADA JR PID: [id number] : 1935 DATE COLLECTED:07/31/2016 22:28 SPECIMEN: 1: Bladder, Biopsy 2: Bladder, Biopsy CLINICAL HISTORY: BLADDER CANCER, BLADDER LESION 1). LEFT TRIGONE BLADDER LESION 2). LEFT TRIGONE BLADDER TUMORS FINAL DIAGNOSIS: 1.LEFT TRIGONE BLADDER BIOPSY: FOLLICULAR CYSTITIS WITH FOCAL ACTIVE INFLAMMATORY CHANGES AND REACTIVE UROTHELIAL CHANGES. Negative for malignancy. 2.LEFT TRIGONE BLADDER TUMOR BIOPSY: SEVERE CHRONIC ACTIVE CYSTITIS WITH PROMINENT REACTIVE UROTHELIAL CHANGES WITH SOME ATYPIA BUT NEGATIVE FOR DEFINITE MALIGNANCY. ICD10 Z85.51 NOTE: As part of a routine quality control tech, Dr. Suzanne Davis has also reviewed part 2 of this case and agrees with the diagnosis. GROSS DESCRIPTION: The specimen is received in two formalin filled containers labeled with the patient's name. 1). The specimen is sublabeled "left trigone bladder lesion" and consists of 2 tiny portions of tissue which aggregate to 0.3 x 0.3 x 0.2 CM. The specimen is entirely submitted in cassette 1A. 2). The specimen is sublabeled "left trigone bladder tumors" and consists of multiple portions of tissue which aggregate to 1.1 x 1.0 x 0.3 CM. The specimen is entirely submitted in cassette 2A. 07/31/2016 DAC MICRO DESCRIPTION: See diagnosis. ICD-9 CODES: CPT CODES: 1: 21728 2: 91122 PROCEDURE/ADDENDA: Addendum SPI Addendum Diagnosis {Not Entered} Addendum Comment At the request of Dr. Perez Akers, multiple additional deeper sections are taken from the material from part 2 designated left trigone bladder tumor biopsy. The multiple deeper sections reveal no significant change from the original material. There is no evidence of a papillary neoplasm, although it is noted that some of the urothelium has been denuded. This addendum report is issued at this time in order to document these additional sections. The final diagnosis is unchanged. Electronically Signed Out Meng Max MD Electronically Signed Out Meng Max MD [facility] [address], [place] [address] Technical component performed at [facility], [address], [place], [address]
--- NOTE | 2016-08-02 02:31 | OP ---
[address] [address] OPERATIVE REPORT PATIENT: ADEN QUEZADA : 1935 MR#: [id number] ADMIT: 07/31/2016 JOB ID: [id number] DATE OF SURGERY: 07/31/2016 PREOPERATIVE DIAGNOSIS(ES): Bladder tumor, bladder lesion. POSTOPERATIVE DIAGNOSIS(ES): Bladder tumors, bladder lesion. PROCEDURE: Cystoscopy, transurethral resection of bladder tumors (1-2 cm), bladder biopsy, and left ureteral stent placement. SURGEON: Perez Akers MD TRIMMING CUTTER: None. ANESTHESIA: General. ESTIMATED BLOOD LOSS: 5 mL. SPECIMENS: Left trigone bladder tumors, left trigone bladder lesion. DRAINS: A 22 cm x 6-Mosotho left ureteral double-J stent (no string), 20-Mosotho Barbosa catheter to straight drainage. COMPLICATIONS: None. CONDITION: Stable. FINDINGS: Cystoscopy revealed an approximately 1 cm papillary bladder tumor on the left trigone (just posterior to the left ureteral orifice), and approximately 0.5 cm papillary bladder tumor on the left trigone (approximately 1-2 cm posterior to the left ureteral orifice), and approximately 0.5 cm erythematous and mildly edematous bladder lesion on the left trigone (approximately 1-2 cm medial to the left ureteral orifice). Bladder tumors and bladder lesion were resected using bipolar loop electrocautery. Left ureteral stent was placed. INDICATIONS: The patient is an 81-year-old male with history of bladder cancer with office cystoscopy showing bladder tumor and bladder lesion. The patient now presents for cystoscopy, transurethral resection of bladder tumor, bladder biopsy, possible left ureteral stent placement and mitomycin intravesical instillation. DESCRIPTION OF PROCEDURE: Patient was brought to the operating room and placed supine on the operating room table. The patient was given vancomycin and Levaquin IV antibiotics. Sequential compression device boots were placed. General anesthesia was administered. The patient was brought down into dorsal lithotomy position. The patient was prepped and draped in standard surgical fashion. A 26-Mosotho continuous flow resectoscope was placed into the distal urethra without difficulty. The cystoscopy revealed normal distal urethra with no urethral stricture, mild to moderate bilobar prostatic hypertrophy, moderately trabeculated bladder. Bilateral ureteral orifices in normal position. An approximately 1 cm papillary bladder tumor on the left trigone (just posterior to the left ureteral orifice) and approximately 0.5 cm papillary bladder tumor on the left trigone (approximately 1-2 cm posterior to the left ureteral orifice) and approximately 0.5 cm erythematous and mildly edematous bladder lesion on the left trigone (approximately 1-2 cm medial to the left ureteral orifice). Both bladder tumors and the bladder lesions were resected in their entirety using Thunderbeat bipolar loop electrocautery and were sent to Pathology for permanent specimen. Of note, in resecting the left trigone bladder tumor just posterior to the left ureteral orifice, to resect the entire tumor, the left ureteral orifice needed to be resected with the tumor. The bladder tumors and bladder lesion were sent to Pathology for permanent specimen. The opening of the left distal ureter was identified. An angle tip Ultra guidewire with assistance of a 5-Mosotho open-ended catheter was able to passed into the opening to the left distal ureter and passed up the left ureter into the left renal pelvis. The continuous-flow resectoscope was removed from the patient. The guidewire secured to the drape with a Darlyn clamp as a safety wire. The continuous-flow resectoscope was placed in the urethra into the bladder. The base of the bladder tumor resected areas and bladder biopsied area including normal surrounding bladder mucosa were fulgurated using bipolar loop electrocautery. Excellent hemostasis was achieved. No evidence for bladder perforation was seen. Thus, both bladder tumors and bladder lesion were resected in their entirety using bipolar loop electrocautery. Then continuous-flow resectoscope was removed from the patient. Continuous-flow resectoscope was passed over the safety guidewire through the urethra into the bladder. A 22 cm x 6-Mosotho ureteral double-J stent, with the stent string removed prior to stent placement, was passed over the guidewire through cystoscope and passed up the left ureter and placed left renal pelvis and distal pigtail was located in the bladder. The guidewire was removed. Correct positioning of the stent was confirmed both fluoroscopically and under direct visualization using cystoscope. Good efflux of contrast could be seen draining from the distal end of the stent into the bladder further confirming correct stent positioning. Thus, the left ureteral stent was placed without difficulty. In addition. The continuous-flow resectoscope was removed. A 20-Mosotho Barbosa catheter was placed through the urethra and into the bladder without difficulty. Barbosa catheter balloon was inflated with 10 mL sterile water. Barbosa catheter was placed to straight drainage. The skin was cleaned and dried. The patient was placed in supine position. The patient was awakened from general anesthesia and transferred to the recovery room in stable condition. The patient tolerated procedure well. POSTOPERATIVE PLAN: The patient to return to see me in 5-6 days for postoperative visit and trial of void (early to mid morning appointment).
== END 2016-07-31 23:59 | disposition home or self-care (01) ==
LOC: SAS 08:58
PROVIDERS: ATTEND Urology
DX: N30.21 Other chronic cystitis with hematuria (principal); N32.9 Bladder disorder, unspecified; N40.1 Benign prostatic hyperplasia with lower urinary tract symptoms; R39.14 Feeling of incomplete bladder emptying; R39.15 Urgency of urination; R31.9 Hematuria, unspecified; R35.0 Frequency of micturition; R33.9 Retention of urine, unspecified; N35.9 Urethral stricture, unspecified; I25.10 Atherosclerotic heart disease of native coronary artery without angina pectoris; I10 Essential (primary) hypertension; E78.00 Pure hypercholesterolemia, unspecified; E11.9 Type 2 diabetes mellitus without complications; I71.4 Abdominal aortic aneurysm, without rupture; Z79.84 Long term (current) use of oral hypoglycemic drugs; Z79.82 Long term (current) use of aspirin; Z86.14 Personal history of Methicillin resistant Staphylococcus aureus infection; Z85.828 Personal history of other malignant neoplasm of skin; Z79.02 Long term (current) use of antithrombotics/antiplatelets; Z87.440 Personal history of urinary (tract) infections; Z87.891 Personal history of nicotine dependence
CPT/HCPCS: 52204; 52234; 52332; 74420; 88305; C2617; J2405; J3010; J3370; J7120; J9280; Q9967